=== PATIENT | male | born 1950 | race Caucasian/White ===

== ENCOUNTER 2021-09-28 12:46 | Inpatient (IN) | payer MEDICARE, SELFPAY ==
[2021-09-28 12:59] VITALS: BP 147/68; PULSE 73; RESP 18; TEMP 36.3; O2SAT 98
--- NOTE | 2021-09-28 14:32 | ED.GENADUL_ITS ---
Discharge Plan Disposition Patient Disposition: [facility] INPATIENT Condition: Stable Discharge Details Chief Complaint: Cellulitis Clinical Impression: Cellulitis Primary Care Provider: JosselineLocal ED Provider: David Broussard Home Meds and New Rx's Prescriptions: No Action tadalafil [Cialis] 5 MG tablet 5 mg PO DAILY Qty: 30 metformin 500 mg Tablet 1,000 mg PO DAILY torsemide 20 mg Tablet 40 mg PO DAILY AM sulfamethoxazole 500 mg Tablet 100 mg PO DAILY vit D3-vit K2-ca fructoborate 20 mcg-180 mcg- 216 mg Tablet PO Medical Decision Making 70-year-old male history of diabetes presents with red swollen leg over the past several days worsening over the last day, was started on Bactrim instructed to come to the emergency department is worsening, afebrile nontoxic, evidence of cellulitis extending from foot through lower extremity and into proximal medial left thigh, erythematous indurated warm, no crepitus no bulla no fluctuance. Leg is warm and sensate. Bedside ultrasound negative for DVT likely worsening cellulitis. Low suspicion for deep space infection such as myositis or fasciitis. Will expand spectrum of antibiotics to IV clindamycin. Will obtain blood cultures lab fluids and will admit patient for continued IV antibiotic therapy. 15: 34 resting comfortably no acute distress, labs largely unremarkable. However given extent of cellulitis will need admission for IV antibiotics close reassessment of infection and transition to p.o. therapy. HPI General Date/Time Provider Initiated Documentation: 09/28/21 13:10 . HPI Narrative: 70-year-old male history of diabetes, presents with red warm swollen left lower extremity is worsening over the past several days, endorses small wound on schilling that is been being evaluated by wound care/skilled therapy, denies fevers chills nausea vomiting. Was started on Bactrim by outside practitioner. Counseled to come to the emergency department if symptoms worsened. Patient noted that swelling and redness have extended up to his medial thigh Related Data Home Medications Medication Instructions Recorded Confirmed tadalafil 5 mg tablet (Cialis) 5 mg PO DAILY #30 tab-caps 08/24/16 metformin 500 mg tablet 1,000 mg PO DAILY 09/28/21 09/28/21 sulfamethoxazole 500 mg tablet 100 mg PO DAILY 09/28/21 09/28/21 torsemide 20 mg tablet 40 mg PO DAILY AM 09/28/21 09/28/21 vitamin D3 20 mcg-vit K2 180 tab PO 09/28/21 mcg-calcium fructoborate 216 mg tablet Allergies Allergy/AdvReac Type Severity Reaction Status Date / Time No Known Allergies Allergy Unverified 09/28/21 13:05 General Stated Complaint: Cellulitis BRIGID: 2 Review of Systems Narrative: Review of Systems Constitutional: negative Eyes: negative ENT: negative Cardiovascular: negative Respiratory: negative Gastrointestinal: negative : negative Musculoskeletal: negative Skin: Leg swelling redness warmth Neurologic: negative Psych: negative PFSH All Active Problems (Updated 09/28/21 @ 15:35 by David Broussard MD) Cellulitis (Acute) Social History Smoking/Tobacco Use Status: Never Smoking risk assessment performed?: Yes Alcohol Intake: current Do you feel safe at home: Yes Do you feel safe in your relationship?: Yes Exam Narrative Exam Narrative: Physical Examination General: alert, awake, cooperative, resting comfortably, no acute distress HEENT: normocephalic, atraumatic; PERRL, EOM intact, conjunctiva normal; no nasal discharge; moist mucous membranes, oral and pharyngeal mucosa normal, tolerating secretions Neck: supple, trachea midline; full ROM Chest: normal to inspection Respiratory: normal respiratory effort, speaking in full sentences, clear to auscultation, no wheezing, rales or rhonchi Cardiac: regular rate, regular rhythm, S1S2 intact, no murmurs rubs or gallops GI: abdomen soft, non-tender, non-distended; no palpable mass or hepatosplenomegaly Skin: Erythematous, indurated, warm skin involving foot lower extremity and medial thigh, no crepitus no bulla no fluctuance patient does have small defect in skin anterior schilling appears chronic in nature Neuro: AAOx3, normal speech, moving all extremities Extremities: See skin exam; sensate mobile extremities bilaterally no signs of trauma Psych: Appropriate mood and affect Course Vital Signs Vital signs: Vital Signs Temperature 36.3 C L 09/28/21 12:59 Pulse 73 09/28/21 12:59 Respiratory Rate 18 09/28/21 12:59 Blood Pressure 147/68 H 09/28/21 12:59 Pulse Oximetry 98 09/28/21 12:59 Temperature 36.3 C L 09/28/21 12:59 Temperature Source Temporal Artery Scan 09/28/21 12:59 Pulse 73 09/28/21 12:59 Respiratory Rate 18 09/28/21 12:59 Respiratory Effort 09/28/21 13:13 Blood Pressure 147/68 H 09/28/21 12:59 Blood Pressure Position Supine 09/28/21 12:59 Pulse Oximetry 98 09/28/21 12:59 Oxygen Delivery Method Room Air 09/28/21 12:59 Oxygen Flow Rate 0 09/28/21 12:59 Lab/Test Results Lab/Test Results: 09/28/21 14:26 Blood Blood Culture - Pending 09/28/21 14:26 Blood Blood Culture - Pending PAWSS Have you Ever Experienced Previous Episodes of Alcohol Withdrawal?: No Have you ever Experienced Withdrawal Seizures?: No Have you ever undergone Alcohol Rehabilitation Treatment (i.e, inpt ot outpatient treatment programs)?: No Have you ever Experienced Blackouts?: No Have you ever Combined Alcohol with other Downers within the last 90 days?: No Have you ever Combined Alcohol with any other Substance of Abuse during the last 90 days?: No Positive Blood Alcohol level on Presentation? [PCS.BAL]: No Evidence of Increased Autonomic Activity (i.e. HR>120, tremor, sweating, agitation, nausea)?: No Result: 0
[2021-09-28 14:40] LABS: Lactate 1.3 mmol/L (0.6-1.4)
[2021-09-28 14:42] LABS: Abs Immature Grans 0.26 10^3/uL (0.0-0.06); Absolute Basophil Count 0.08 10^3/uL (0.0-0.2); Absolute Eosinophil Count 0.24 10^3/uL (0.0-0.7); Absolute Lymphocyte Count 1.47 10^3/uL (1.2-3.4); Absolute Neutrophil Count 7.33 10^3/uL (1.2-6.7); Basophils % 0.8; Eosinophils % 2.3; HCT 45.6 % (40.0-50.0); HGB 14.3 g/dL (13.5-17.5); Immature Grans % 2.5; Lymphocytes % 14.2; MCH 31.6 pg (27.0-33.0); MCHC 31.4 % (32.0-36.0); MCV 101 fL (80-95); MPV 9.6 fL (8.0-11.0); Monocytes % 9.6; Neutrophils % 70.6; Platelet Count 166 10^3/uL (130-400); RBC 4.53 10^6/uL (4.36-5.78); RDW 14.8 % (11.8-14.1); RDW-SD 55.5 fL; WBC 10.38 10^3/uL (4.4-10.8)
[2021-09-28 14:55] LABS: ALT 49 U/L (16-63); AST 38 U/L (15-37); Albumin 2.7 g/dL (3.4-5.0); Alkaline Phosphatase 126 U/L (46-116); Anion Gap 8.1 mmol/L (3-11); BUN 39 mg/dL (7-18); Bilirubin, Total 0.4 mg/dL (0.2-1.0); CO2 32.9 mmol/L (21.0-32.0); CREATININE 1.8 mg/dL (0.70-1.30); Calcium 9.8 mg/dL (8.5-10.1); Chloride 99 mmol/L (98-107); Estimated GFR 37.27 (mL/min/1.73m2); Glucose 109 mg/dL (74-106); Potassium 4.3 mmol/L (3.5-5.1); Sodium 140 mmol/L (136-145); Total Protein 8.3 g/dL (6.4-8.2)
[2021-09-28] MEDS: CLINDAMYCIN 600 MG/50 ML BAG 100 MG IVPB ×2 (14:58→22:58)
[2021-09-28] MEDS: Normal Saline 1,000 ML 1000 ML IV (15:00)
[2021-09-28 15:45] VITALS: BP 147/62; PULSE 74; RESP 17; TEMP 36.2; O2SAT 95
[2021-09-28 15:52] LABS: Source Nasal/Nares
[2021-09-28 16:24] VITALS: BP 169/75; PULSE 76; RESP 18; TEMP 36.6; O2SAT 97
--- NOTE | 2021-09-28 17:09 | HPE_ITS ---
Date of service: 09/28/21 Time of Service: 16:09 Assessment and Plan Assessment and plan (1) Cellulitis: Status: Acute Assessment and plan: Likely etiology is the ulceration of the anterior left ankle. Failed outpt Bactrim. MRSA screen. Cont Clindamycin initiated in the ED. Monitor CRP and WBC count. Wound care has been managing his ulceration with silver impregnated dressing to absorb drainage. Also has silver dressings to the RLE. (2) Diabetes mellitus: Status: Chronic Assessment and plan: Cont metformin. Check A1c. Monitor glucose AC and HS. SS correction insuling dosing. Controlled carb diet. (3) Venous stasis dermatitis of both lower extremities: Status: Acute Assessment and plan: Chronic with stasis dermatitis. Elevation of BLE frequently throughout the day. Cont home toresemide. (4) Morbid obesity: Status: Acute Assessment and plan: He has lost up to 35# on several occasions prior to orthopedic surgeries and his glucose came under control with the weight loss. Encourage wt management. History of Present Illness History of Present Illness Chief Complaint: cellulitis of lower extremity Narrative: This is a very pleasant 70 yo male with a PMH of DM2, obesity, chronic BLE venous stasis with venous stasis dermatitis. He presented to the ED with c/o of increasing redness and warmth of the left lower extremity over the last several days. He has a ulceration of the anterior ankle on the LLE that is being treated by wound care. He has been taking bactrim as an outpt. He denies fever/chills. No diaphoresis, N/V. In the ED his WBC count was normal. VBG lactate normal. Electrolytes normal. Creatinine 1.8; slightly higher than his baseline. Temperature ?36.3 C L ?09/28/21 12:59 Temperature Source ?Temporal Artery Scan ?09/28/21 12:59 Pulse ?73 ?09/28/21 12:59 Respiratory Rate ?18 ?09/28/21 12:59 Respiratory Effort ? ?09/28/21 13:13 Blood Pressure ?147/68 H ?09/28/21 12:59 Blood Pressure Position ?Supine ?09/28/21 12:59 Pulse Oximetry ?98 ?09/28/21 12:59 Oxygen Delivery Method ?Room Air ?09/28/21 12:59 Oxygen Flow Rate ?0 ?09/28/21 12:59 IV clindamycin initiated in the ED. Blood cultures obtained. Review of Systems All systems reviewed & are unremarkable except as noted in HPI and below PFSH All Active Problems (Updated 09/28/21 @ 17:22 by David Schofield MD) Morbid obesity (Acute) Venous stasis dermatitis of both lower extremities (Acute) Diabetes mellitus (Chronic) Cellulitis (Acute) Social History Smoking/Tobacco Use Status: Never Smoking risk assessment performed?: Yes Alcohol Intake: current Do you feel safe at home: Yes Do you feel safe in your relationship?: Yes Meds Allergies and Home Medications Allergies Allergy/AdvReac Type Severity Reaction Status Date / Time No Known Allergies Allergy Unverified 09/28/21 13:05 Home Medications Medication Instructions Recorded Confirmed Type tadalafil 5 mg tablet (Cialis) 5 mg PO DAILY #30 tab-caps 08/24/16 History metformin 500 mg tablet 1,000 mg PO DAILY 09/28/21 09/28/21 History sulfamethoxazole 500 mg tablet 100 mg PO DAILY 09/28/21 09/28/21 History torsemide 20 mg tablet 40 mg PO DAILY AM 09/28/21 09/28/21 History vitamin D3 20 mcg-vit K2 180 tab PO 09/28/21 History mcg-calcium fructoborate 216 mg tablet Exam Narrative Exam Narrative: Congenial male sitting on side of bed eating dinner. Const General: cooperative and no acute distress Nutritional Appearance: obese Orientation: alert and oriented x3 Eyes General: appearance normal, both eyes and all related structures Sclera: sclerae normal Resp Effort & Inspection: normal respiratory effort Auscultation: clear to auscultation bilaterally Cardio Rate: regular rate Rhythm: regular rhythm Heart Sounds: S1 normal and S2 normal GI Inspection: obesity Palpation: soft and nontender Skin Full body images: 1. Erythema from medial thigh to foot (on skin that is moderately darkly pigmented). + pitting edema. Mild tenderness. Bandage over shallow ulcer on anterior ankle. Extrem General: no calf tenderness Psych Appearance: grossly normal Mental Status: mental status grossly normal Speech and Movement: speech clear Mood: congruent mood Affect: normal affect Results Labs Result diagrams: 09/28/21 14:35 09/28/21 14:35 Labs: Laboratory Results - last 24 hr 09/28/21 09/28/21 09/28/21 14:35 14:35 14:35 WBC 10.38 RBC 4.53 Hgb 14.3 Hct 45.6 MCV 101 H MCH 31.6 MCHC 31.4 L RDW 14.8 H Plt Count 166 MPV 9.6 Immature Gran % 2.5 Neutrophils % 70.6 Lymphocytes % 14.2 Monocytes % 9.6 Eosinophils % 2.3 Basophils % 0.8 Nucleated RBC % 0.0 Absolute Neutrophils 7.33 H Absolute Lymphocytes 1.47 Absolute Monocytes 1.00 H Absolute Eosinophils 0.24 Absolute Basophils 0.08 VBG Lactate 1.3 Sodium 140 Potassium 4.3 Chloride 99 Carbon Dioxide 32.9 H Anion Gap 8.1 BUN 39 H Creatinine 1.8 H Estimated GFR/1.73 m2 37.27 Glucose 109 H Calcium 9.8 Total Bilirubin 0.4 AST 38 H ALT 49 Alkaline Phosphatase 126 H Total Protein 8.3 H Albumin 2.7 L COVID-19 Source 09/28/21 15:40 WBC RBC Hgb Hct MCV MCH MCHC RDW Plt Count MPV Immature Gran % Neutrophils % Lymphocytes % Monocytes % Eosinophils % Basophils % Nucleated RBC % Absolute Neutrophils Absolute Lymphocytes Absolute Monocytes Absolute Eosinophils Absolute Basophils VBG Lactate Sodium Potassium Chloride Carbon Dioxide Anion Gap BUN Creatinine Estimated GFR/1.73 m2 Glucose Calcium Total Bilirubin AST ALT Alkaline Phosphatase Total Protein Albumin COVID-19 Source Nasal/Nares Last Vital Signs Temp 36.6 C 09/28/21 16:24 Pulse 76 09/28/21 16:24 Resp 18 09/28/21 16:24 BP 169/75 H 09/28/21 16:24 Pulse Ox 97 09/28/21 16:24 PAWSS Have you Ever Experienced Previous Episodes of Alcohol Withdrawal?: No Have you ever Experienced Withdrawal Seizures?: No Have you ever undergone Alcohol Rehabilitation Treatment (i.e, inpt ot o utpatient treatment programs)?: No Have you ever Experienced Blackouts?: No Have you ever Combined Alcohol with other Downers within the last 90 days?: No Have you ever Combined Alcohol with any other Substance of Abuse during the last 90 days?: No Positive Blood Alcohol level on Presentation? [PCS.BAL]: No Evidence of Increased Autonomic Activity (i.e. HR>120, tremor, sweating, agitation, nausea)?: No Result: 0
[2021-09-28 17:16] LABS: COVID-19 PCR Negative (Negative)
[2021-09-28] MEDS: Enoxaparin 40 MG/0.4 ML SYR SC (17:49)
[2021-09-28 18:33] LABS: Lab Add On Test DONE
[2021-09-28 19:00] LABS: C-Reactive Protein 18.69 mg/dL (0.0-0.3)
[2021-09-28 19:47] VITALS: BP 152/85; PULSE 90; RESP 18; TEMP 36.6; O2SAT 97
[2021-09-28 23:31] VITALS: BP 150/82; PULSE 90; RESP 18; TEMP 36.8; O2SAT 97
[2021-09-29 05:47] LABS: Abs Immature Grans 0.37 10^3/uL (0.0-0.06); Absolute Basophil Count 0.08 10^3/uL (0.0-0.2); Absolute Eosinophil Count 0.17 10^3/uL (0.0-0.7); Absolute Lymphocyte Count 1.29 10^3/uL (1.2-3.4); Absolute Monocyte Count 0.77 10^3/uL (0.1-0.8); Absolute Neutrophil Count 5.34 10^3/uL (1.2-6.7); Eosinophils % 2.1; HCT 40.7 % (40.0-50.0); HGB 13.4 g/dL (13.5-17.5); Immature Grans % 4.6; Lymphocytes % 16.1; MCH 33.3 pg (27.0-33.0); MCHC 32.9 % (32.0-36.0); MCV 101 fL (80-95); MPV 9.4 fL (8.0-11.0); Monocytes % 9.6; Neutrophils % 66.6; Platelet Count 184 10^3/uL (130-400); RBC 4.03 10^6/uL (4.36-5.78); RDW 14.9 % (11.8-14.1); RDW-SD 55.3 fL; WBC 8.02 10^3/uL (4.4-10.8)
[2021-09-29 05:56] LABS: Anion Gap 7.8 mmol/L (3-11); BUN 29 mg/dL (7-18); C-Reactive Protein 13.67 mg/dL (0.0-0.3); CO2 28.2 mmol/L (21.0-32.0); CREATININE 1.5 mg/dL (0.70-1.30); Chloride 104 mmol/L (98-107); Glucose 126 mg/dL (74-106); Potassium 4.3 mmol/L (3.5-5.1); Sodium 140 mmol/L (136-145)
[2021-09-29] MEDS: Torsemide 20 MG TAB 40 MG PO (05:57)
[2021-09-29] MEDS: CLINDAMYCIN 600 MG/50 ML BAG 100 MG IVPB (05:57)
[2021-09-29 06:30] LABS: Hemoglobin A1C 6.6 % (<5.7)
[2021-09-29 08:12] VITALS: BP 132/69; PULSE 79; RESP 19; TEMP 36.7; O2SAT 94
[2021-09-29] MEDS: Insulin Aspart 300 UNITS/3 ML PEN SC (08:24)
--- NOTE | 2021-09-29 11:04 | W.PM.DS.N ---
Date of service: 09/29/21 Time of Service: 10:07 DS: Diagnosis Discharge Diagnosis (1) Cellulitis: Status: Acute (2) Diabetes mellitus: Status: Chronic (3) Venous stasis dermatitis of both lower extremities: Status: Acute (4) Morbid obesity: Status: Acute Discharge Plan Disposition Patient Disposition: HOME Condition: Improving Discharge Details Reason For Visit: Lower Extremity Cellulitis Admit Date/Time: 09/28/21 15:28 Admit Provider: David Schofield Attending Provider: David Schofield Primary Care Provider: Josseline,[facility] Course Hospital Course: This is a very pleasant 70 yo male with a PMH of DM2, obesity, chronic BLE venous stasis with venous stasis dermatitis.? He presented to the ED with c/o of increasing redness and warmth of the left lower extremity over the last several days.? He has a ulceration of the anterior ankle on the LLE that is being treated by wound care.? He has been taking bactrim as an outpt.? He denies fever/chills.? No diaphoresis, N/V. In the ED his WBC count was normal.? VBG lactate normal.? Electrolytes normal.? Creatinine 1.8; slightly higher than his baseline.? IV clindamycin initiated. The following day the proximal area of involvement showed less erythema. The LLE area of cellulitis was less swollen. The dressing at the LLE schilling was changed; the ulceration was very shallow and appx 1 cm in diameter. He will discharge on oral clindamycin 600mg TID for 42 doses. He will continue with current wound care, including the Unna boot on the RLE. Follow up with PCP in 1 week. Home Meds and New Rx's Prescriptions: New clindamycin HCl 300 mg capsule 600 mg PO TID Qty: 42 0RF Continued tadalafil [Cialis] 5 MG tablet 5 mg PO DAILY Qty: 30 metformin 500 mg Tablet 1,000 mg PO DAILY torsemide 20 mg Tablet 40 mg PO DAILY AM vit D3-vit K2-ca fructoborate 20 mcg-180 mcg- 216 mg Tablet PO Discontinued sulfamethoxazole 500 mg Tablet 100 mg PO DAILY Discharge Instructions Activity:: Activity as Tolerated Equipment/Supplies:: No Equipment Needed Diet:: Resume usual home diet. Discharge Orders Discharge Orders: Discharge Order (Routine); Ordered 09/29/21 Ordered By: David Schofield DS: Summary Time Spent with Patient providing and/or coordinating discharge services: Greater than 30 minutes Status at Discharge Functional status at discharge: independent ambulation Overall status at discharge: patient is progressing back to baseline Mental Status: mental status grossly normal Speech and Movement: speech and movement normal Mood: congruent mood Affect: normal affect Exam Narrative Exam Narrative: Congenial male sitting in reclinder States he notes less edema/tightness in the LLE. Const General: cooperative and no acute distress Nutritional Appearance: obese Orientation: alert and oriented x3 Eyes General: appearance normal, both eyes and all related structures Sclera: sclerae normal Resp Effort & Inspection: normal respiratory effort Auscultation: clear to auscultation bilaterally Cardio Rate: regular rate Rhythm: regular rhythm Heart Sounds: S1 normal and S2 normal GI Inspection: obesity Palpation: soft and nontender Skin General skin exam: erythema (LLE: from medial thigh through ankle; improved erythema and less swelling.) Wounds: wounds noted (LLE with 1 cm shallow ulcer.) Extrem General: no calf tenderness Psych Appearance: grossly normal Mental Status: mental status grossly normal Speech and Movement: speech and movement normal Mood: congruent mood Affect: normal affect DS: Data Vitals/I&O Vitals and I&O: Vital Signs Temperature 36.7 C 09/29/21 08:12 Temperature Source Tympanic 09/29/21 08:12 Pulse 79 09/29/21 08:12 Pulse Rhythm Regular 09/29/21 09:38 Respiratory Rate 19 09/29/21 08:12 Respiratory Effort Non-Labored 09/29/21 09:38 Respiratory Depth Normal 09/29/21 09:38 Respiratory Pattern Normal 09/29/21 09:38 Blood Pressure 132/69 09/29/21 08:12 Blood Pressure Position Supine 09/28/21 12:59 Pulse Oximetry 94 09/29/21 08:12 Oxygen Delivery Method Room Air 09/29/21 08:12 Oxygen Flow Rate 0 09/29/21 08:12 Pain Level 0 09/29/21 08:12 Intake & Output 09/28/21 09/28/21 09/29/21 11:59 23:59 11:59 Intake Total 1050 / 1050 580 / 580 Balance 1050 / 1050 580 / 580 Weight 115.666 kg Intake: IV 1050 / 1050 100 / 100 Oral 480 / 480 Other: Comment pT stated that he had voided. Voiding Methods Toilet Toilet Data Completed and Pending Labs on day of discharge: Labs from last 24 hours 09/29/21 09/29/21 09/29/21 05:24 05:24 05:24 WBC 8.02 RBC 4.03 L Hgb 13.4 L Hct 40.7 MCV 101 H MCH 33.3 H MCHC 32.9 D RDW 14.9 H Plt Count 184 MPV 9.4 Immature Gran % 4.6 Neutrophils % 66.6 Lymphocytes % 16.1 Monocytes % 9.6 Eosinophils % 2.1 Basophils % 1.0 Nucleated RBC % 0.0 Absolute Neutrophils 5.34 Absolute Lymphocytes 1.29 Absolute Monocytes 0.77 Absolute Eosinophils 0.17 Absolute Basophils 0.08 VBG Lactate Sodium 140 Potassium 4.3 Chloride 104 Carbon Dioxide 28.2 Anion Gap 7.8 BUN 29 H Creatinine 1.5 H Estimated GFR/1.73 m2 46.00 Glucose 126 H Hemoglobin A1c 6.6 H Calcium 9.0 Total Bilirubin AST ALT Alkaline Phosphatase C-Reactive Protein 13.67 H Total Protein Albumin COVID-19 Source SARS-CoV-2 (PCR) Add-On Test Request 09/28/21 09/28/21 09/28/21 15:40 14:35 14:35 WBC 10.38 RBC 4.53 Hgb 14.3 Hct 45.6 MCV 101 H MCH 31.6 MCHC 31.4 L RDW 14.8 H Plt Count 166 MPV 9.6 Immature Gran % 2.5 Neutrophils % 70.6 Lymphocytes % 14.2 Monocytes % 9.6 Eosinophils % 2.3 Basophils % 0.8 Nucleated RBC % 0.0 Absolute Neutrophils 7.33 H Absolute Lymphocytes 1.47 Absolute Monocytes 1.00 H Absolute Eosinophils 0.24 Absolute Basophils 0.08 VBG Lactate 1.3 Sodium Potassium Chloride Carbon Dioxide Anion Gap BUN Creatinine Estimated GFR/1.73 m2 Glucose Hemoglobin A1c Calcium Total Bilirubin AST ALT Alkaline Phosphatase C-Reactive Protein Total Protein Albumin COVID-19 Source Nasal/Nares SARS-CoV-2 (PCR) Negative Add-On Test Request 09/28/21 09/28/21 09/28/21 14:35 14:30 14:30 WBC RBC Hgb Hct MCV MCH MCHC RDW Plt Count MPV Immature Gran % Neutrophils % Lymphocytes % Monocytes % Eosinophils % Basophils % Nucleated RBC % Absolute Neutrophils Absolute Lymphocytes Absolute Monocytes Absolute Eosinophils Absolute Basophils VBG Lactate Sodium 140 Potassium 4.3 Chloride 99 Carbon Dioxide 32.9 H Anion Gap 8.1 BUN 39 H Creatinine 1.8 H Estimated GFR/1.73 m2 37.27 Glucose 109 H Hemoglobin A1c Calcium 9.8 Total Bilirubin 0.4 AST 38 H ALT 49 Alkaline Phosphatase 126 H C-Reactive Protein 18.69 H Total Protein 8.3 H Albumin 2.7 L COVID-19 Source SARS-CoV-2 (PCR) Add-On Test Request DONE 09/28/21 17:45 Nose MRSA Screen - Pending 09/28/21 14:55 Blood Blood Culture - Pending 09/28/21 14:35 Blood Blood Culture - Pending Preliminary micro results at discharge 09/28/21 17:45 MRSA Screen - Pending Nose 09/28/21 14:55 Blood Culture - Pending Blood 09/28/21 14:35 Blood Culture - Pending Blood PFSH All Active Problems Morbid obesity (Acute) Venous stasis dermatitis of both lower extremities (Acute) Diabetes mellitus (Chronic) Cellulitis (Acute) Social History Smoking/Tobacco Use Status: Never Smoking risk assessment performed?: Yes Alcohol Intake: current Do you feel safe at home: Yes Do you feel safe in your relationship?: Yes
[2021-09-29] MEDS: metFORMIN 500 MG TAB 1000 MG PO (11:24)
== END 2021-09-29 12:15 | disposition home or self-care (01) | DRG 603 ==
LOC: ER 15:56 → MS 16:16
PROVIDERS: Admitting Provider Family Medicine; Emergency Provider Emergency Medicine; Visit Provider Family Medicine
DX: L03.116 Cellulitis of left lower limb (principal); L97.321 Non-pressure chronic ulcer of left ankle limited to breakdown of skin; E66.01 Morbid (severe) obesity due to excess calories; I87.2 Venous insufficiency (chronic) (peripheral); E11.9 Type 2 diabetes mellitus without complications; Z68.39 Body mass index [BMI] 39.0-39.9, adult; Z79.84 Long term (current) use of oral hypoglycemic drugs
CPT/HCPCS: 36415; 80048; 80053; 87040; 87081; 87635; 96361; 96365; 99285; J1650; 83036; 83605; 85025; 86140; 99222; 99239

== ENCOUNTER 2021-10-28 12:29 | Outpatient (CLI) | payer MEDICARE, SELFPAY ==
--- NOTE | 2021-10-28 12:00 | DI.RAD_ITS ---
Exam(s) XR WRIST LT COMPLETE EXAM: XR WRIST LT COMPLETE CLINICAL HISTORY: Left wrist injury/Pain--M25.532. TECHNIQUE: 2D digital imaging was performed of the left wrist. Three images were obtained. PA, obl ique and lateral views were obtained. COMPARISON: No exams were available for comparison FINDINGS: BONES: No acute fracture is present. No bony destructive lesion is seen. There is an indeterminate ti ny density seen adjacent to the ulnar styloid process. JOINTS: The carpal bones are normally aligned. Marked degenerative changes are seen at the 1st carpom etacarpal joint. SOFT TISSUE: Normal. IMPRESSION: Indeterminate tiny density seen adjacent to the ulnar styloid process. This may be chronic but a tin y avulsed fracture fragment cannot be excluded. Please correlate with this patient's site of pain. DATA REPOSITORY: RADIATION DOSE DELIVERED:
== END 2021-10-28 12:49 ==
LOC: DI 12:32
PROVIDERS: PCP Physician Assistant Medical; Visit Provider Physician Assistant
DX: M25.532 Pain in left wrist (principal); M18.12 Unilateral primary osteoarthritis of first carpometacarpal joint, left hand; M85.88 Other specified disorders of bone density and structure, other site
CPT/HCPCS: 73110

== ENCOUNTER 2021-11-11 13:48 | Outpatient (CLI) | payer MEDICARE, SELFPAY ==
--- NOTE | 2021-11-11 13:15 | DI.RAD_ITS ---
Exam(s) XR WRIST LT LIMITED EXAM: XR WRIST LT LIMITED CLINICAL HISTORY: left wrist pain. TECHNIQUE: 2D digital imaging was performed of the left wrist. Two images were obtained. PA and la teral views were obtained. COMPARISON: CR XR WRIST LT COMPLETE from 10/28/2021 FINDINGS: BONES: The tiny density adjacent to the ulnar styloid process is unchanged. No bony destructive lesi on is seen. On the lateral view there is a well corticated rounded density anterior to the radiocarpa l joint which appear old. JOINTS: The carpal bones are normally aligned. Marked degenerative changes are seen at the 1st [facility] shane int. SOFT TISSUE: Normal. IMPRESSION: No change in appearance of the wrist since 10/28/2021. DATA REPOSITORY: RADIATION DOSE DELIVERED:
== END 2021-11-11 13:49 | disposition home or self-care (01) ==
LOC: DIORS 13:48
PROVIDERS: PCP Physician Assistant Medical; Referring Provider Physician Assistant Medical; Visit Provider Student in an Organized Health Care Education/Training Program
DX: M25.532 Pain in left wrist (principal); S52.612A Displaced fracture of left ulna styloid process, initial encounter for closed fracture; X58.XXXA Exposure to other specified factors, initial encounter
CPT/HCPCS: 99214; 73100